=== PATIENT | female | born 1990 | race Caucasian/White ===

== ENCOUNTER 2018-12-16 18:36 | Emergency (ER) | payer OTHER, MEDICAID ==
[2018-12-16 18:48] VITALS: BP 124/66
[2018-12-16] MEDS ORDERED: METOCLOPRAMIDE HCL INJ/PF 10 MG/2 ML SDV IV ONE (19:27)
[2018-12-16] MEDS ORDERED: NORMAL SALINE 1000 ML 1,000 ML IV ONE (19:27)
--- NOTE | 2018-12-16 19:27 | ER Document Report ---
ED General - General Chief Complaint: Nausea/Vomiting Stated Complaint: VOMITING Time Seen by Provider: 12/16/18 19:21 Primary Care Provider: [facility] [Provider Group] - Follow up in 3-5 days Notes: Patient is a 28-year-old female, , approximately 14 weeks gravid that presents to the emergency department for chief complaint of nausea and vomiting and headache. Patient reports she has been having morning sickness on a daily basis over the last several weeks of her , she has been taking prescribed diclegis which has helped and she was taken in every other day, but on Monday, she felt worse, and started having several episodes of vomiting and even today, and she has had headache, which Tylenol was helping, but today she was unable to take the Tylenol because of her vomiting. She currently rates her headache as a 3 out of 10 describes it as holocephalic and aching in nature. Denies any blurred vision, numbness, tingling or weakness. Denies having any vaginal bleeding or discharge, denies any urinary symptoms such as dysuria or hematuria. Past Medical History: Denies chronic medical conditions Past Surgical History: Denies surgical history Social History: Denies tobacco, alcohol or drug use. Family History: Reviewed and noncontributory for presenting illness Allergies: Reviewed, see documented allergy list. REVIEW OF SYSTEMS: Other than noted above, the 12 point review of systems was reviewed with the patient and were negative, all pertinent findings are included in the HPI. PHYSICAL EXAMINATION: Vital signs reviewed, nursing noted reviewed. GENERAL: Well-appearing, well-nourished and in no acute distress. HEAD: Atraumatic, normocephalic. EYES: Eyes appear normal, extraocular movements intact, sclera anicteric, conjunctiva are normal. ENT: nares patent, oropharynx clear without exudates. Moist mucous membranes. NECK: Normal range of motion, supple without lymphadenopathy LUNGS: Breath sounds clear to auscultation bilaterally and equal. No wheezes rales or rhonchi. HEART: Regular rate and rhythm without murmurs ABDOMEN: Soft, nontender, normoactive bowel sounds. No rebound, guarding, or rigidity. No masses appreciated. EXTREMITIES: Nontender, good range of motion, no pitting or edema. NEUROLOGICAL: No focal neurological deficits. Moves all extremities spontaneously Motor and sensory grossly intact on exam. PSYCH: Normal mood, normal affect. SKIN: Warm, Dry, normal turgor, no rashes or lesions noted on exposed skin TRAVEL OUTSIDE OF THE [place] IN LAST 30 DAYS: No - Related Data Allergies/Adverse Reactions: latex Allergy (Verified 12/16/18 18:40) Past Medical History - Social History Smoking Status: Never Smoker Family History: Reviewed & Not Pertinent Patient has suicidal ideation: No Patient has homicidal ideation: No Renal/ Medical History: Denies: Hx Peritoneal Dialysis Physical Exam - Vital signs Vitals: Temp Pulse Resp BP Pulse Ox 98.6 F 84 16 124/66 100 12/16/18 18:46 12/16/18 18:46 12/16/18 18:46 12/16/18 18:46 12/16/18 18:46 Course - Re-evaluation Re-evalutation: Patient seen and examined vital signs reviewed. Patient was evaluated and treated as appropriate for the patient's presenting symptoms and complaint, with consideration of any critical or life threatening conditions that may be associated with their obtained history and exam as noted above. Patient was treated with IV fluids and IV Reglan 10 mg to help with both her headache and her nausea and vomiting The patient was re-evaluated and was stable and improved Evaluation was most consistent with nausea and vomiting in , headache, nonspecific Plan of care was discussed with the patient at this point, after careful consideration I feel that that patient can be discharged from the emergency department, the patient was educated treatments and reasons to return to the emergency department based on their presumed diagnosis as noted above, they were advised to followup with a primary care physician in 2-3 days. Patient was agreeable to plan of care. *Note is created using voice recognition software and may contain spelling, syntax or grammatical errors. - Vital Signs Vital signs: Temp Pulse Resp BP Pulse Ox 98.6 F 84 16 124/66 100 12/16/18 18:46 12/16/18 18:46 12/16/18 18:46 12/16/18 18:46 12/16/18 18:46 Discharge - Discharge Clinical Impression: Nausea and vomiting Qualifiers: Vomiting type: unspecified Vomiting Intractability: non-intractable Qualified Code(s): R11.2 - Nausea with vomiting, unspecified Headache Qualifiers: Headache type: unspecified Headache chronicity pattern: unspecified pattern Intractability: not intractable Qualified Code(s): R51 - Headache Condition: Stable Disposition: HOME, SELF-CARE Instructions: Vomiting ([facility]) Additional Instructions: Please follow-up with the QUANTITATIVE ANALYST DEVELOPER, recommend taking a dose of your likely just this evening, to help mitigate any further nausea or vomiting. Referrals: [facility] [Provider Group] - Follow up in 3-5 days
== END 2018-12-16 21:12 | disposition home or self-care (01) ==
LOC: ER 18:36
DX: O21.9 Vomiting of pregnancy, unspecified (principal); O26.899 Other specified pregnancy related conditions, unspecified trimester; R51 Headache; Z3A.00 Weeks of gestation of pregnancy not specified; Z91.040 Latex allergy status
CPT/HCPCS: 99283; 96361; 96374; J2765; J7030

== ENCOUNTER 2019-03-11 09:48 | Outpatient (CLI) | payer OTHER, MEDICAID ==
[2019-03-11 10:44] LABS: AMORPHOUS SEDIMENT,URINE TRACE /HPF; APPEARANCE,URINE TURBID; BILIRUBIN,URINE NEGATIVE (NEGATIVE); COLOR,URINE YELLOW; GLUCOSE, URINE NEGATIVE (NEGATIVE); KETONES,URINE NEGATIVE (NEGATIVE); LEUKOCYTE ESTERASE,URINE NEGATIVE (NEGATIVE); NITRITE,URINE NEGATIVE (NEGATIVE); PROTEIN,URINE NEGATIVE (NEGATIVE); URINE SPECIFIC GRAVITY 1.018; UROBILINOGEN,URINE NEGATIVE mg/dL (<2.0)
[2019-03-11 23:42] LABS: URINE AMPHETAMINES SCREEN NEGATIVE; URINE BARBITURATES SCREEN NEGATIVE; URINE BENZODIAZEPINES SCREEN NEGATIVE; URINE COCAINE SCREEN NEGATIVE; URINE MARIJUANA (THC) SCREEN NEGATIVE; URINE METHADONE SCREEN NEGATIVE; URINE PHENCYCLIDINE SCREEN NEGATIVE
== END 2019-03-11 10:25 | disposition home or self-care (01) ==
LOC: LC 09:48
PROVIDERS: ATTEND Student in an Organized Health Care Education/Training Program
PROC: 4A1HXCZ Monitoring of Products of Conception, Cardiac Rate, External Approach (ICD-10-PCS; principal; 2019-03-11)
DX: O26.892 Other specified pregnancy related conditions, second trimester (principal); O9A.212 Injury, poisoning and certain other consequences of external causes complicating pregnancy, second trimester; S39.91XA Unspecified injury of abdomen, initial encounter; Z3A.25 25 weeks gestation of pregnancy
CPT/HCPCS: 80307; 81001

== ENCOUNTER 2019-06-15 09:20 | Inpatient (IN) | payer OTHER, MEDICAID ==
[2019-06-15 10:13] LABS: APPEARANCE,URINE SLIGHTLY-CLOUDY; BILIRUBIN,URINE NEGATIVE (NEGATIVE); COLOR,URINE YELLOW; GLUCOSE, URINE NEGATIVE (NEGATIVE); KETONES,URINE NEGATIVE (NEGATIVE); LEUKOCYTE ESTERASE,URINE NEGATIVE (NEGATIVE); NITRITE,URINE NEGATIVE (NEGATIVE); PROTEIN,URINE NEGATIVE (NEGATIVE); UROBILINOGEN,URINE NEGATIVE mg/dL (<2.0)
[2019-06-15 10:38] LABS: URINE AMPHETAMINES SCREEN NEGATIVE; URINE BARBITURATES SCREEN NEGATIVE; URINE BENZODIAZEPINES SCREEN NEGATIVE; URINE COCAINE SCREEN NEGATIVE; URINE MARIJUANA (THC) SCREEN NEGATIVE; URINE METHADONE SCREEN NEGATIVE; URINE PHENCYCLIDINE SCREEN NEGATIVE
[2019-06-15] MEDS ORDERED: RINGERS SOLUTION,LACTATED 1,000 ML IV PRN (11:56)
[2019-06-15 12:43] LABS: ABSOLUTE LYMPHOCYTES (AUTO) 1.7 10^3/uL (0.5-4.7); ABSOLUTE MONOCYTES (AUTO) 0.5 10^3/uL (0.1-1.4); BASOPHILS % (AUTO) 0.3 % (0-2); EOSINOPHILS % (AUTO) 0.2 % (0-6); HEMATOCRIT 36.9 % (36.0-47.0); HEMOGLOBIN 12.6 g/dL (12.0-15.5); MEAN CORPUSCULAR HEMOGLOBIN 31.9 pg (27.0-33.4); MEAN CORPUSCULAR HGB CONC 34.1 g/dL (32.0-36.0); MEAN CORPUSCULAR VOLUME 94 fl (80-97); MONOCYTES % (AUTO) 4.2 % (3-13); PLATELET COUNT 241 10^3/uL (150-450); RED BLOOD COUNT 3.95 10^6/uL (3.72-5.28); RED CELL DISTRIBUTION WIDTH 12.6 % (11.5-14.0); SEGMENTED NEUTROPHILS % (AUTO) 80.3 % (42-78); TOTAL CELLS COUNTED % (AUTO) 100 %; WHITE BLOOD COUNT 11.2 10^3/uL (4.0-10.5)
[2019-06-15] MEDS ORDERED: EPHEDRINE SULFATE INJ 50 MG/1 ML AMPULE ONE (12:47)
[2019-06-15] MEDS ORDERED: MISOPROSTOL 0.2 MG TABLET ONE (12:47)
[2019-06-15] MEDS ORDERED: OXYTOCIN 10 UNIT/ML VIAL ONE (12:47)
[2019-06-15] MEDS ORDERED: BUPIVACAINE HCL 0.25 % INJ/PF (2.5 MG/1 ML) 30 ML VIAL ONE (12:48)
[2019-06-15] MEDS ORDERED: LIDOCAINE 1% INJ-PF (10 MG/ML) 30 ML SDV ONE (12:48)
[2019-06-15] MEDS ORDERED: FENTANYL/BUPIVACAINE/NS/PF 300 MCG/150 ML RTUINJ EPI ONE (12:48)
[2019-06-15] MEDS ORDERED: OXYTOCIN/NORMAL SALINE 20 UNIT/1,000 ML RTUINJ ONE (12:48)
[2019-06-15] MEDS ORDERED: MAG HYDROX/AL HYDROX/SIMETH SUSP 30 ML UDCUP ONE (14:44)
--- NOTE | 2019-06-15 15:35 | Admission Physical ---
Datetime Report Generated by CPN: 06/15/2019 15:35 CURRENT ADMISSION Chief Complaint: Uterine Contractions Indication for Induction: Not Applicable Admit Impression : Term, Intrauterine ; Active Labor; Intact Membranes Admit Plan: Admit to Unit; Initiate Labor Protocol ALLERGIES Medication Allergies: No Medication Allergies: latex (06/15/2019) Latex: Latex Allergies OBSTETRICAL HISTORY EDC: 06/18/2019 00:00 : 1 Para: 0 Term: 0 : 0 SAB: 0 IAB: 0 Ectopic: 0 Livin Cesareans: 0 VBACs: 0 Multiple Births: 0 Gestational Diabetes: No Rh Sensitization: No Incompetent Cervix: No SANIYA: No Infertility: No ART Treatment: No Uterine Anomaly: No IUGR: No Hx Previous C/S: No Macrosomia: No Hx Loss/Stillborn: No PIH: No Hx : No Placenta Previa/Abruption: No Depression/PP Depression: No PTL/PROM: No Post Hemorrhage: No Current Procedures: None Obstetrical History Comments: G-1 current pregancny denies complications SEE RECORDS Alcohol: No Marijuana : No Cocaine: No Other Illicit Drugs: No Cigarettes: Never Smoker. 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 Surgery: No Heart Disease: No Hosp/Surgery: No Autoimmune Disorder: No Anesthetic Complications: No Kidney Disease: No Abnormal Pap Smear: Yes Neuro/Epilepsy: No Psychiatric Disorders: No Other Medical Diseases: No Hepatitis/Liver Disease: No Significant Family History: No Varicosities/Phlebitis: No Trauma/Violence : No Thyroid Dysfunction: No INFECTIOUS HISTORY Gonorrhea: No Genital Herpes: No Chlamydia: No Tuberculosis: No Syphilis: No Hepatitis: No HIV/AIDS Exposure: No Rash or Viral Illness: No HPV: No PHYSICAL EXAM General: Normal HEENT: Normal Heart: Normal Lungs: Normal Abdomen: Normal Genitourinary Exam: Normal Extremities: Normal Pelvic Type: Adequate Vital Signs: Reviewed; Within Normal Limits VAGINAL EXAM Dilatation: 8 Effacement: 90 Station: 1 Contraction Comments: 2-5 min MEMBRANES Membranes: Intact FETUS A EGA: 39.4 Monitoring: External US FHR- Baseline: 115 Variability: Moderate 6-25bpm Accelerations: 15X15 Decelerations: None FHR Category: Category I Admit Comment: AROM with clear fluid and placement of IUPC. PLANS FOR LABOR AND DELIVERY Labor and Delivery: None Pain Management: Epidural Feeding Preference: Breast Benefit of Breast Feed Discussed: Yes Circumcision: Yes INFORMED CONSENT Signature: with User ID: [email or web address]
--- NOTE | 2019-06-15 20:27 | Warning Signs in Babies ---
VOD Warning Signs Datetime Report Generated by [facility]: 06/15/2019 20:27 VOD#608 -Warning Signs in Babies: Needs to be viewed. (03/11/2019 10:00:Vani Severino RN)
[2019-06-15] MEDS ORDERED: HYDROCODONE/ACETAMINOPHEN 5-325 MG TABLET PO PRN ×2 (20:55→20:57)
[2019-06-15] MEDS ORDERED: DIPH/PERTUSS(ACELL)/TETANUS VAC/PF 0.5 ML SYR (>=10YO) IM PRN (20:55)
[2019-06-15] MEDS ORDERED: MEASLES,MUMPS&RUBELLA VACC/PF 0.5 ML VIAL SUBCUT PRN (20:55)
[2019-06-15] MEDS ORDERED: BENZOCAINE/MENTHOL AEROSOL SPRAY 56 ML TOP PRN (20:55)
[2019-06-15] MEDS ORDERED: ZOLPIDEM TARTRATE 5 MG TABLET PO PRN (20:55)
[2019-06-15] MEDS ORDERED: OXYTOCIN/NORMAL SALINE 20 UNIT/1,000 ML RTUINJ IV PRN (20:55)
[2019-06-15] MEDS ORDERED: DIBUCAINE 1% OINTMENT 56 GM TP PRN (20:55)
[2019-06-15] MEDS ORDERED: ONDANSETRON HCL 8 MG TABLET PO PRN (20:58)
[2019-06-15] MEDS ORDERED: PROMETHAZINE HCL 25 MG TABLET PO PRN (20:58)
[2019-06-15] MEDS ORDERED: DIPHENHYDRAMINE HCL 25 MG CAPSULE PO PRN (21:00)
--- NOTE | 2019-06-15 23:13 | Delivery Summary ---
Del Sum A-C Datetime Report Generated by CPN: 06/15/2019 23:13 DELIVERY PERSONNEL DELIVERY PERSONNEL: [id number] Delivery Doctor:: Arron Reyes MD Labor and Delivery Nurse:: Yennifer Quintanilla RN Nursery Nurse:: Hoa Wilde RN Intelligence Support Officer/CRITICAL CARE TRANSPORT NURSE: Teresita Ross, ST MATERNAL INFORMATION Delivery Anesthesia: Epidural Medications After Delivery: Pitocin Drip 20 Units/1000ml NSS Estimated Blood Loss (ml): 100 Delivery QBL: 100 Maternal Complications: None Provider Comments: Pt C_P. After 1.5hrs of pushing, fetus began to have late decels. Pt placed in stirrups. Perineum cleaned. Kiwi vac placed and gentle downward traction applied with maternal pushing. Head partially delivered. Vac removed. Nuchal x 1 reduced. Anterior and posterior shoulder delivered followed by rest of body. Baby placed on mom's abdomen. After _1min, cord clamped x 1 and cut by FOB. Cord blood collected. Placenta delivered intact with 3VC. Lacs repaired as above LABOR SUMMARY EDC: 06/18/2019 00:00 No. Babies in Womb: 1 Attempted: No Labor Anesthesia: Epidural LABOR INFORMATION Reason for Induction: Not Applicable Onset of Labor: 06/15/2019 09:54 Complete Dilatation: 06/15/2019 18:26 Oxytocin: Augmentation Group B Beta Strep: neg Antibiotics # of Doses: 0 Antibiotics Time of Last Dose: N/A Name of Antibiotic Given: N/A Steroids Given: None Reason Steroids Not Administered: Not Applicable MEMBRANES Membranes Rupture Method: Artificial Rupture of Membranes: 06/15/2019 15:22 Length of Rupture (hr): 5.00 Amniotic Fluid Color: Clear Amniotic Fluid Amount: Small Amniotic Fluid Odor: Normal STAGES OF LABOR Stage 1 hr: 8 Stage 1 min: 32 Stage 2 hr: 1 Stage 2 min: 56 Stage 3 hr: 0 Stage 3 min: 4 Total Time in Labor hr: 10 Total Time in Labor min: 32 VAGINAL DELIVERY Episiotomy: None Laceration #1: Vaginal Laceration Extension #1: Second Degree Other Laceration: L labial, R labial Laceration Repair: Yes Laceration Repair Note: Vaginal lac repaired in running locked fashion with 2.0 Vicryl and 3.0 Vicryl. R labial lac hemostatic. L labial lac repaired in interrupted fashion with 3.0 Vicryl. Sharps Count Correct: Yes CSECTION DELIVERY Primary Indication: N/A Secondary Indication: N/A CSection Incidence: N/A Labor: N/A Elective: N/A CSection Incision: N/A BABY A INFORMATION Delivery Date/Time: 06/15/2019 20:22 Method of Delivery: Vaginal Born in Route : No : N/A Forceps: N/A Vacuum Extraction: Successful Shoulder Dystocia : No ASSISTED DELIVERY BABY A Indication for Assisted Delivery: Recurrent late decelerations Catheter Prior to Procedure: Yes Station Vacuum/Forcep Apply: +2 Position Vacuum/Forcep Apply: Right Occipital Anterior Vacuum Number of Pulls: 1 Vacuum Number of PopOffs: 0 Vacuum Maximum Pressure Obtained: 550 Reduce Pressure btwn Ctx: Yes Vacuum Internet Retailer: Kiwi Total Time Vacuum Applied: 30 seconds PRESENTATION/POSITION BABY A Presentation: Cephalic Cephalic Presentation: Vertex Vertex Position: Right Occipital Anterior Breech Presentation: N/A PLACENTA INFORMATION BABY A Placenta Delivery Time : 06/15/2019 20:26 Placenta Method of Delivery: Spontaneous Placenta Status: Delivered SCORES BABY A Heart Rate 1 min: >100 bpm Resp Effort 1 min: Good Cry Reflex Irritability 1 min: Cough or Sneeze or Pulls Away Muscle Tone 1 min: Active Motion Color 1 min: Blue/Pale Resuscitation Effort 1 min: Tactile Stimulation SCORE 1 MIN: 8 Heart Rate 5 min: >100 bpm Resp Effort 5 min: Good Cry Reflex Irritability 5 min: Cough or Sneeze or Pulls Away Muscle Tone 5 min: Active Motion Color 5 min: Body Howe, Extremities Blue Resuscitation Effort 5 min: Tactile Stimulation SCORE 5 MIN: 9 INFORMATION BABY A Gestational Age at Delivery: 39.4 Gestational Status: Full Term- 39- 40.6 Weeks Outcome : Liveborn Condition : Stable Sex: Male IDENTIFICATION BABY A Verification Date/Time: 06/15/2019 20:31 ID Band Number: [id number] Mother's Name Verified: Yes Infant RN Verifying : B. RING _ K. BRAIN WEIGHT/LENGTH BABY A Birthweight (gm): 2960 Infant Weight (lb): 6 Weight (oz): 8 Length (in): 19.00 Infant Length (cm): 48.26 CORD INFORMATION BABY A No. Cord Vessels: 3 Nuchal Cord : Around Neck x1, Loose Cord Blood Taken: Yes-For Eval (Mom's Blood Type - or O+) Infant Suction: Mouth; Nose ASSESSMENT BABY A Complications: Multiple Late Decels; Multiple Variable Decels Physical Findings- Other: See full nursery quarry supervisor dimension stone Respirations: Appears Normal Skin to Skin: Yes Skin to Skin Time (min): 60 Communications Manager/ALS Called : No Care By: Cedrick Jerome RN Transferred To: Remains with Mother BABY B INFORMATION : N/A SIGNATURES Signature: with User ID: [email or web address] : I was personally available for consultation and serving as supervising physician for the MLP.
[2019-06-16 06:06] LABS: HEMATOCRIT 31.6 % (36.0-47.0); HEMOGLOBIN 10.9 g/dL (12.0-15.5); MEAN CORPUSCULAR HEMOGLOBIN 32.8 pg (27.0-33.4); MEAN CORPUSCULAR HGB CONC 34.5 g/dL (32.0-36.0); MEAN CORPUSCULAR VOLUME 95 fl (80-97); PLATELET COUNT 208 10^3/uL (150-450); RED BLOOD COUNT 3.33 10^6/uL (3.72-5.28); RED CELL DISTRIBUTION WIDTH 13.1 % (11.5-14.0); WHITE BLOOD COUNT 17.6 10^3/uL (4.0-10.5)
[2019-06-16] MEDS: IBUPROFEN 800 MG TABLET PO SCH ×4 (06:21→22:16)
[2019-06-16] MEDS: DOCUSATE SODIUM 100 MG CAPSULE PO SCH ×2 (10:15→17:54)
[2019-06-16] MEDS: FERROUS SULFATE 325 MG TABLET PO SCH ×2 (10:15→17:54)
[2019-06-16] MEDS: PRENATAL VITAMIN W DHA CAPSULE PO SCH (10:15)
[2019-06-16] MEDS: SENNOSIDES/DOCUSATE 8.6-50 MG 1 EACH TABLET PO SCH (10:15)
--- NOTE | 2019-06-16 11:38 | PDOC PROGRESS REPORT ---
Subjective-OB Progress Note for:: 06/16/19 Subjective: Pt doing well, no concerns. She reports light bleeding, reg diet and is voiding without difficulty. Physical Exam (OB) Vital Signs: Temp Pulse Resp BP Pulse Ox 98.3 F 70 16 116/66 99 06/16/19 07:45 06/16/19 07:45 06/16/19 07:45 06/16/19 07:45 06/16/19 07:45 Intake & Output 06/15/19 06/16/19 06/17/19 06:59 06:59 06:59 Weight 79.9 kg - General General Appearance: Appears well In distress: None - Lochia Lochia Amount: Small 10-25 ml Lochia Color: Rubra/Red - Abdomen Description: Soft, Round Fundal Description: Firm, Midline Fundal Height: u/u - u/2 Objective-Diagnostic Laboratory: 06/16/19 05:41 06/15/19 06/15/19 06/16/19 12:33 12:33 05:41 WBC 11.2 H 17.6 H RBC 3.95 3.33 L Hgb 12.6 10.9 L Hct 36.9 31.6 L MCV 94 95 MCH 31.9 32.8 MCHC 34.1 34.5 RDW 12.6 13.1 Plt Count 241 208 Seg Neutrophils % 80.3 H Blood Type O POSITIVE Antibody Screen NEGATIVE Assessment and Plan(PN) - Assessment and Plan (1) Second degree perineal laceration during delivery Is this a current diagnosis for this admission?: Yes (2) Vaginal delivery Is this a current diagnosis for this admission?: Yes - Time Spent with Patient Time with patient: Less than 15 minutes Medications reviewed and adjusted accordingly: Yes - Disposition Anticipated Discharge: Home Within: within 24 hours
[2019-06-16] MEDS: FAMOTIDINE 20 MG TABLET PO PRN (22:16)
[2019-06-17] MEDS: IBUPROFEN 800 MG TABLET PO SCH ×2 (06:31→14:12)
--- NOTE | 2019-06-17 09:35 | PDOC DISCHARGE SUMMARY ---
Final Diagnosis Discharge Date: 06/17/19 - PP Day#2, doing well, , no complaints, O+, Rubella Immune - Final Diagnosis (1) Normal course Is this a current diagnosis for this admission?: Yes (2) Second degree perineal laceration during delivery Is this a current diagnosis for this admission?: Yes (3) Vaginal delivery Is this a current diagnosis for this admission?: Yes Discharge Data - Discharge Medication Prescriptions: Ibuprofen [Motrin 800 mg Tablet] 800 mg PO Q8 #60 tablet Home Medications: Pnv No.121/Iron/Folic Acid [ Multivitamin Tablet] 1 tab PO DAILY 03/11/19 Ibuprofen [Motrin 800 mg Tablet] 800 mg PO Q8 #60 tablet 06/17/19 Reason(s) for Admission: Onset of Labor Procedures: Ultrasound Intrapartum Procedure(s): Spontaneous Vaginal Delivery Complication(s): Laceration-Vaginal Laceration-Degree: 2nd - Diagnosis Test Laboratory: Temp Pulse Resp BP Pulse Ox 98.4 F 64 16 112/79 99 06/16/19 20:27 06/16/19 20:27 06/16/19 20:27 06/16/19 20:27 06/16/19 20:27 06/15/19 06/15/19 06/16/19 09:29 12:33 05:41 RBC 3.95 3.33 L Hgb 12.6 10.9 L Hct 36.9 31.6 L Urine Opiates Screen NEGATIVE - Discharge information/Instructions Discharge Activity: Activity As Tolerated, No Lifting Over 10 Pounds, Pelvic Rest Discharge Diet: As Tolerated, Regular Disposition: HOME, SELF-CARE Follow up with: [facility] in: 4, Weeks
[2019-06-17] MEDS: PRENATAL VITAMIN W DHA CAPSULE PO SCH (09:54)
[2019-06-17] MEDS: FERROUS SULFATE 325 MG TABLET PO SCH (09:54)
[2019-06-17] MEDS: FAMOTIDINE 20 MG TABLET PO PRN (09:54)
[2019-06-17] MEDS: SENNOSIDES/DOCUSATE 8.6-50 MG 1 EACH TABLET PO SCH (09:54)
[2019-06-17] MEDS: DOCUSATE SODIUM 100 MG CAPSULE PO SCH (09:54)
[2019-06-17 11:23] VITALS: BP 116/66
== END 2019-06-17 15:15 | disposition home or self-care (01) | DRG 807 ==
LOC: LC 09:20 → LR 11:57 → 2S 23:30
PROVIDERS: ADMIT Obstetrics & Gynecology; ATTEND Obstetrics & Gynecology
PROC: 10D07Z6 Extraction of Products of Conception, Vacuum, Via Natural or Artificial Opening (ICD-10-PCS; principal; 2019-06-15)
PROC: 0KQM0ZZ Repair Perineum Muscle, Open Approach (ICD-10-PCS; 2019-06-15)
PROC: 10907ZC Drainage of Amniotic Fluid, Therapeutic from Products of Conception, Via Natural or Artificial Opening (ICD-10-PCS; 2019-06-15)
DX: O69.81X0 Labor and delivery complicated by cord around neck, without compression, not applicable or unspecified (principal); Z37.0 Single live birth; O70.1 Second degree perineal laceration during delivery; Z91.040 Latex allergy status; Z3A.39 39 weeks gestation of pregnancy
CPT/HCPCS: 36415; 59025; 80307; 81005; 85025; 85027; 86592; 86850; 86900; 86901; J2590; J3010; J3490